=== PATIENT | female | born 1990 | race Hispanic/Latino ===

== ENCOUNTER 2016-12-26 22:46 | Day surgery (SDC) | payer OTHER ==
[2016-12-26 23:19] VITALS: BMI 27.3
[2016-12-26] MEDS ORDERED: CEFAZOLIN/Water 2 GM/20 ML SYRINGE ONE (23:39)
[2016-12-27] MEDS ORDERED: FLU VACC QS2017-18 36 mo. & older 0.5 ML SYRINGE IM ONE (09:00)
== END 2016-12-27 01:40 | disposition home or self-care (01) ==
LOC: L&D/OP 22:46
PROVIDERS: ATTEND Family Medicine
DX: O47.1 False labor at or after 37 completed weeks of gestation (principal); Z88.0 Allergy status to penicillin; Z79.899 Other long term (current) drug therapy; Z3A.38 38 weeks gestation of pregnancy

== ENCOUNTER 2016-12-31 08:01 | Inpatient (IN) | payer OTHER ==
[2016-12-31 08:41] VITALS: BMI 27.6
[2016-12-31] MEDS ORDERED: Lidocaine 1% (PF) 30 ML VIAL ONE (09:14)
--- NOTE | 2016-12-31 09:24 | PDOC.LDHP ---
Labor and Delivery H&P Chief complaint: contractions HPI: 26 yo with a previous LTCS here with complaint of contraction since 0400. States that she wants TOLAC. Denies vaginal bleeding, loss of fluid, decreased movement. Current gestational age (weeks): 39 Due date: 01/07/17 Dating criteria: last menstrual period, first trimester ultrasound Grav: 4 Para: 2 OB History Details: 1 previous spontaneous AB, 1 , 1 LTCS for breech Current complications: other (thrombocytopenia) Current medications: none Previous surgical history: low tranverse CS Social history: none - Physical Exam Vital signs reviewed and normal: yes General: NAD, breathing through contractions Heart: RRR Lungs: CTAB Abdomen: gravid Extremeties: no edema FHT: category 1 - Vaginal Exam cm dilated: 4 Effacement: 75% Station: -1 - OB Labs Blood type: A RH: positive Antibody Screen: negative HIV: negative RPR: negative HEPSAg: negative 1 hour GCT: negative Urine drug screen: negative Rubella: immune - Assessment L&D Assessment: term patient in labor - Plan Plan: admit to L&D (TOLAC. continuous monitoring. Epidural is requested. Recheck in 3 hours.) <Asad Mathew - Last Filed: 12/31/16 09:22> - OB Labs GBS: negative <Jimmy Carrasquillo - Last Filed: 12/31/16 10:58> Allergies/Adverse Reactions: Allergies Allergy/AdvReac Type Severity Reaction Status Date / Time Penicillins Allergy Hives Verified 12/31/16 08:31 Attending Addendum - Attending Addendum I personally evaluated the patient and discussed the management with Dr. Mathew. I have reviewed the H&P and it is repeated by me. I agree with the History, Examination, Assessment and Plan documented above with any addition or exceptions noted below. Admit for labor, TOLAC with CFM. <Jimmy Carrasquillo - Last Filed: 12/31/16 10:58>
[2016-12-31] MEDS ORDERED: Misoprostol 200 MCG TAB PR PRN (09:49)
[2016-12-31] MEDS ORDERED: Acetaminophen/Codeine 30-300mg Tablet PO PRN (09:49)
[2016-12-31] MEDS ORDERED: Diphenoxylate HCl/Atropine Tablet PO PRN (09:49)
[2016-12-31] MEDS ORDERED: Lidocaine 1% (PF) 30 ML VIAL SC PRN (09:49)
[2016-12-31] MEDS ORDERED: LR / Pitocin 40 units/1000 ml 1,000 ML IV PRN (09:49)
[2016-12-31] MEDS ORDERED: Carboprost 250 MCG/ML AMP IM PRN (09:49)
[2016-12-31] MEDS ORDERED: Ibuprofen 800 MG TAB PO PRN (09:49)
[2016-12-31] MEDS ORDERED: Promethazine HCl 25 MG/ML VIAL IM PRN ×3 (09:49→23:53)
[2016-12-31] MEDS ORDERED: HYDROcodone/Acetaminophen 5/325 mg Tablet PO PRN (09:49)
[2016-12-31] MEDS ORDERED: Acetaminophen 500 MG TAB PO PRN (09:49)
[2016-12-31] MEDS ORDERED: Ondansetron HCl/PF 4 MG/2 ML Vial IVP PRN ×4 (09:49→23:53)
[2016-12-31] MEDS ORDERED: Fentanyl 4 mcg/Marc 0.1% Cadd 100 ML ONE (09:56)
[2016-12-31] MEDS ORDERED: FLU VACC QS2017-18 36 mo. & older 0.5 ML SYRINGE IM ONE (10:00)
[2016-12-31 10:28] LABS: Hematocrit 36.6 % (36.0-47.0); Mean Platelet Volume 12.2 fL (7.4-10.4); Red Blood Cell (RBC) Count 4.09 mill/uL (4.20-5.40)
[2016-12-31] MEDS: Lactated Ringer's 1,000 ML IV SCH ×2 (11:40→15:06)
--- NOTE | 2016-12-31 12:53 | PDOC.LDPN ---
Labor & Delivery Progress Note - Subjective Subjective: comfortable - Objective Vital signs reviewed and normal: yes General: NAD, resting, breathing through contractions Uterine fundus: non tender SVE: 4.5/80/-1 FHT: category 2 [place] contractions every: 3-5 min - Assessment (1) Term Code(s): Z34.80 - ENCOUNTER FOR SUPRVSN OF NORMAL , UNSP TRIMESTER Current Visit: Yes Status: Acute Comment: Following epidural placement, patient had short interval of hypotension with resultant deep late decelerations x 2 and subtle late decels x 2. Patient fluid bolused and given ephedrine. FHT improved to baseline 120 without decels and variability moderate with accels. BP improved. Since FHT improved 2/2 bp intervention, will cont expectant mgmt and close monitoring. (2) Desires (vaginal after ) trial Code(s): O34.219 - MATERNAL CARE FOR UNSP TYPE SCAR FROM PREVIOUS DEL Current Visit: Yes Status: Acute (3) DIO III (cervical intraepithelial neoplasia III) Current Visit: Yes Status: Chronic (4) Gestational thrombocytopenia without hemorrhage in third trimester Code(s): O99.113 - OTH DIS OF BLD/BLD-FORM ORG/IMMUN MECHNSM COMP PREG, 3RD TRI ; D69.6 - THROMBOCYTOPENIA, UNSPECIFIED Current Visit: Yes Status: Chronic (5) Normocytic normochromic anemia Code(s): D64.9 - ANEMIA, UNSPECIFIED Current Visit: Yes Status: Chronic (6) History of low transverse section Code(s): Z98.891 - HISTORY OF UTERINE SCAR FROM PREVIOUS SURGERY Current Visit : Yes Status: Chronic -: 26 yr old at 39 wks by LMP/9.1wk US 1. sIUP in labor- 1T labs wnl, 2T anatomy wnl- anterior, fundal placenta, 3T labs reviewed, US on 12/09/16 with hadlock 63.9%. (see above for labor plan) 2. hx of section 2/2 breech delivery- 67% success predicted for , expectant mgmt without augmentation 3. Gestational thrombocytopenia s/p 14 day course of prednisone for purpose of platelet salvage 2/2 desire for epidural. LFTs wnl and hep c AB neg. 4. normocytic normochromic anemia- cont once daily iron 5. hx of DIO 3 s/p leep with ASCUS pap at start of - plan to repeat colpo PP 2/2 abnormal pap after DIO 3 6. Desires contraception- current plan is to breastfeed and start progestion only pill until getting LARC
[2016-12-31] MEDS ORDERED: Eucerin (Mineral Oil/Petrolatum,White) 30 gm Jar TOP PRN ×2 (13:13→23:53)
[2016-12-31] MEDS ORDERED: Naloxone HCl 0.4 mg/ml Vial IVP PRN ×4 (13:13→23:53)
[2016-12-31] MEDS ORDERED: ePHEDrine/0.9% NaCl/PF SYRINGE 50 mg/10 ml SLOW IVP PRN (13:13)
[2016-12-31] MEDS ORDERED: Lactated Ringer's 500 ML IV PRN (13:13)
[2016-12-31] MEDS ORDERED: diphenhydrAMINE 50 MG/ML VIAL IVP PRN ×2 (13:13→23:53)
[2016-12-31] MEDS ORDERED: Acetaminophen 325 MG TAB PO PRN (13:13)
[2016-12-31] MEDS ORDERED: Communication Order-Pharmacy FS SCH ×2 (13:15→23:45)
[2016-12-31] MEDS ORDERED: Fentanyl 4mcg/Marcaine 0.1% Cassette 100 ML EPIDURAL SCH (13:15)
--- NOTE | 2016-12-31 13:36 | PDOC.LDPN ---
Labor & Delivery Progress Note - Subjective Subjective: comfortable - Objective Vital signs reviewed and normal: yes General: NAD, resting, breathing through contractions Uterine fundus: non tender SVE: 5/80/-1 FHT: category 2 [place] contractions every: 3-5 AROM: meconium stained fluid - Assessment (1) Term Code(s): Z34.80 - ENCOUNTER FOR SUPRVSN OF NORMAL , UNSP TRIMESTER Current Visit: Yes Status: Acute Comment: AROM with light mec fluid. cat 1 strip s/p bp improvement. Cont expectant mgmt without augmentation (2) Desires (vaginal after ) trial Code(s): O34.219 - MATERNAL CARE FOR UNSP TYPE SCAR FROM PREVIOUS DEL Current Visit: Yes Status: Acute Comment: TOLAC (3) DIO III (cervical intraepithelial neoplasia III) Current Visit: Yes Status: Chronic Comment: s/p leep with subsequent ascus pap. Will plan for colposcopy PP (4) Gestational thrombocytopenia without hemorrhage in third trimester Code(s): O99.113 - OTH DIS OF BLD/BLD-FORM ORG/IMMUN MECHNSM COMP PREG, 3RD TRI ; D69.6 - THROMBOCYTOPENIA, UNSPECIFIED Current Visit: Yes Status: Chronic Comment: repeat platelets prior to epidural removal. (5) Normocytic normochromic anemia Code(s): D64.9 - ANEMIA, UNSPECIFIED Current Visit: Yes Status: Chronic (6) History of low transverse section Code(s): Z98.891 - HISTORY OF UTERINE SCAR FROM PREVIOUS SURGERY Current Visit : Yes Status: Chronic Comment: 2/2 breech presentation. > 50% chance successfus Plan: continue plan of care <Sena Kline - Last Filed: 12/31/16 13:34> Attending Addendum - Attending Addendum I personally evaluated the patient and discussed the management with Dr. Kline. I supervised the AROM procedure. I agree with the History, Examination, Assessment and Plan documented above with any addition or exceptions noted below. <Jimmy Carrasquillo - Last Filed: 12/31/16 15:20>
--- NOTE | 2016-12-31 15:08 | PDOC.LDPN ---
Labor & Delivery Progress Note - Subjective Subjective: comfortable - Objective Vital signs reviewed and normal: yes General: NAD, resting Uterine fundus: non tender Dilation: 6 cm Effacement: 90% Station: -1 FHT: category 1 [place] contractions every: 4 minutes AROM: meconium stained fluid - Assessment (1) Desires (vaginal after ) trial Code(s): O34.219 - MATERNAL CARE FOR UNSP TYPE SCAR FROM PREVIOUS DEL Current Visit: Yes Status: Acute Comment: Patient is making progress with TOLAC. Now / without agumentation. Will continue expectant management. (2) Term Code(s): Z34.80 - ENCOUNTER FOR SUPRVSN OF NORMAL , UNSP TRIMESTER Current Visit: Yes Status: Acute Comment: AROM with light mec fluid. cat 1 strip s/p bp improvement. Cont expectant mgmt without augmentation (3) History of low transverse section Code(s): Z98.891 - HISTORY OF UTERINE SCAR FROM PREVIOUS SURGERY Current Visit : Yes Status: Chronic Comment: 2/2 breech presentation. > 50% chance successfus Plan: continue plan of care
--- NOTE | 2016-12-31 17:55 | PDOC.LDPN ---
Labor & Delivery Progress Note - Subjective Subjective: comfortable, painful contractions, vaginal pressure - Objective Vital signs reviewed and normal: yes General: NAD, resting, breathing through contractions Uterine fundus: palpable contractions Dilation: 6 Effacement: 90% Station: 0 FHT: category 1 (Normal baseline, mod variabilty, accels present, early decels with CTX noted.), early decelerations [place] contractions every: 2-4 min Procedures: IUPC and scalp monitor placed. AROM: meconium stained fluid IUPC placed: yes FSE placed: yes - Assessment (1) Desires (vaginal after ) trial Code(s): O34.219 - MATERNAL CARE FOR UNSP TYPE SCAR FROM PREVIOUS DEL Current Visit: Yes Status: Acute Comment: Slow progress. IUPC placed. Discussed posibilty of for failure to progress or intolerance of labor. Will augment if indicated. epidural placed. FSE placed. (2) Term Code(s): Z34.80 - ENCOUNTER FOR SUPRVSN OF NORMAL , UNSP TRIMESTER Current Visit: Yes Status: Acute Comment: Active labor. GBS negative. (3) DIO III (cervical intraepithelial neoplasia III) Current Visit: Yes Status: Chronic Comment: s/p leep with subsequent ascus pap. Will plan for colposcopy PP (4) Gestational thrombocytopenia without hemorrhage in third trimester Code(s): O99.113 - OTH DIS OF BLD/BLD-FORM ORG/IMMUN MECHNSM COMP PREG, 3RD TRI ; D69.6 - THROMBOCYTOPENIA, UNSPECIFIED Current Visit: Yes Status: Chronic Comment: repeat platelets prior to epidural removal. (5) History of low transverse section Code(s): Z98.891 - HISTORY OF UTERINE SCAR FROM PREVIOUS SURGERY Current Visit : Yes Status: Chronic Comment: 2/2 breech presentation. > 50% chance successfus (6) Normocytic normochromic anemia Code(s): D64.9 - ANEMIA, UNSPECIFIED Current Visit: Yes Status: Chronic
--- NOTE | 2016-12-31 18:04 | PDOC.EVN ---
Event Note - Event Note Event Note: MVU 200/10min since IUPC placement. Will initiate gentle Pitocin titration.
[2016-12-31] MEDS ORDERED: LR 500 ML/Oxytocin 10 units 0 ML ONE (18:28)
[2016-12-31] MEDS ORDERED: LR 500 ML/Oxytocin 10 units 500 ML ONE (18:30)
[2016-12-31] MEDS ORDERED: LR 500 ML/Oxytocin 10 units 500 ML IV SCH (18:45)
--- NOTE | 2016-12-31 20:19 | PDOC.LDPN ---
Labor & Delivery Progress Note - Subjective Subjective: comfortable, no concerns - Objective Vital signs reviewed and normal: yes General: NAD, breathing through contractions, other (pt placed on hands/knees, possible op presentation) Dilation: 8.5 Effacement: 90% Station: 0 FHT: category 1 (baseline 130s, mod variability, accels, early decelerations, no late decels), early decelerations, variability present [place] contractions every: 2 min IUPC placed: yes FSE placed: yes Resuscitative measures: maternal position change - Assessment (1) Term Code(s): Z34.80 - ENCOUNTER FOR SUPRVSN OF NORMAL , UNSP TRIMESTER Current Visit: Yes Status: Acute Comment: Active labor. GBS negative. Plan: continue plan of care, resuscitative measures -: pt vitals stable, breathing through contractions. Continues to make progress. Cervical checks q1hr. cat 1 strip, bl 130s, mod variability, early decelerations, accels, no late decels, no variables pt placed on hands/knees, op presentation per nurse continue plan of care
[2016-12-31] MEDS ORDERED: CEFAZOLIN/Water 2 GM/20 ML SYRINGE ONE (21:52)
[2016-12-31] MEDS ORDERED: Bicitra 30 ML UDCUP ONE (21:52)
--- NOTE | 2016-12-31 22:04 | PDOC.LDPN ---
Labor & Delivery Progress Note - Subjective Subjective: comfortable, painful contractions, vaginal pressure - Objective Abnormal vital signs: pulse 105, afebrile General: NAD Uterine fundus: palpable contractions SVE: Cervical edema is noted on exam. Dilation: 8 Effacement: 90% Station: 0 FHT: category 1 (Normal baseline, moderate variability, early decels, accels present.) IUPC placed: yes FSE placed: yes - Assessment (1) Desires (vaginal after ) trial Code(s): O34.219 - MATERNAL CARE FOR UNSP TYPE SCAR FROM PREVIOUS DEL Current Visit: Yes Status: Acute Comment: Arrest of labor. Will proceed with delivery. (2) Term Code(s): Z34.80 - ENCOUNTER FOR SUPRVSN OF NORMAL , UNSP TRIMESTER Current Visit: Yes Status: Acute Comment: Active labor. GBS negative. (3) DIO III (cervical intraepithelial neoplasia III) Current Visit: Yes Status: Chronic Comment: s/p leep with subsequent ascus pap. Will plan for colposcopy PP (4) Gestational thrombocytopenia without hemorrhage in third trimester Code(s): O99.113 - OTH DIS OF BLD/BLD-FORM ORG/IMMUN MECHNSM COMP PREG, 3RD TRI ; D69.6 - THROMBOCYTOPENIA, UNSPECIFIED Current Visit: Yes Status: Chronic Comment: repeat platelets prior to epidural removal. (5) History of low transverse section Code(s): Z98.891 - HISTORY OF UTERINE SCAR FROM PREVIOUS SURGERY Current Visit : Yes Status: Chronic Comment: 2/2 breech presentation. > 50% chance successfus (6) Normocytic normochromic anemia Code(s): D64.9 - ANEMIA, UNSPECIFIED Current Visit: Yes Status: Chronic (7) Arrested active phase of labor Code(s): O62.1 - SECONDARY UTERINE INERTIA Current Visit: Yes Status: Acute Comment: Discussed proceding with delivery. Discussed R/B/I/A including giving more time for possible cervical dilation. However, the pt is tired and is inclined to proceed with . Clinda for antibx prophylaxis.
[2016-12-31] MEDS ORDERED: Clindamycin/D5W 900 mg/50 ml Premix Bag ONE (22:07)
[2016-12-31] MEDS ORDERED: Clindamycin/D5W 900 MG in Premix Bag 1 BAG IVPB SCH (22:15)
[2016-12-31] MEDS ORDERED: Ondansetron HCl/PF 4 MG/2 ML Vial ONE (22:29)
[2016-12-31] MEDS ORDERED: Morphine PF 1 MG/ML SYR ONE (22:29)
[2016-12-31] MEDS ORDERED: Oxytocin 10 UNITS/ML VIAL ONE ×2 (22:29→22:55)
[2016-12-31] MEDS ORDERED: Ketorolac Tromethamine 30 MG/ML VIAL ONE (22:55)
[2016-12-31] MEDS ORDERED: Fentanyl 100 MCG/2 ML VIAL ONE (23:01)
[2016-12-31] MEDS ORDERED: Midazolam HCl 2 mg/2 ml Vial ONE (23:01)
[2016-12-31 23:09] LABS: CO2 Tension (PaCO2) 59.7 mmHg (44.0-56.0)
[2016-12-31] MEDS ORDERED: Simethicone Chewable 80 MG TAB PO PRN (23:26)
[2016-12-31] MEDS ORDERED: Adacel (T-DAP) 0.5 ML VIAL IM ONE (23:26)
[2016-12-31] MEDS ORDERED: Lanolin Ointment 7 GM TUBE TOP PRN (23:26)
[2016-12-31] MEDS ORDERED: LR w/ Pitocin 40 units/1000 ML BAG IV SCH (23:30)
[2016-12-31] MEDS ORDERED: Naloxone HCl 0.4 mg/ml Vial IV PRN (23:53)
[2016-12-31] MEDS ORDERED: Promethazine HCl 25 MG SUPP PR PRN (23:53)
[2016-12-31] MEDS ORDERED: Ketorolac Tromethamine 30 MG/ML VIAL IVP PRN (23:53)
--- NOTE | 2017-01-01 00:17 | PDOC.OP ---
Operative Note - Operative Note Operative Note: Procedure Note Date of Procedure: 12/31/2016 Resident Surgeon: Sena Kline MD; Bonifacio Daugherty MD Attending Surgeon: Jimmy Carrasquillo MD Procedure: Repeat low transverse caesarean section Preoperative Diagnosis: 1) Term intrauterine 2) Previous 2/2 breech presentation 3) Failed TOLAC 4) Gestational thrombocytopenia 5) Normochromic normocytic anemia 6) hx of DIO 3 s/p leep with subsequent ASCUS Pap Postoperative Diagnosis: 1) Term intrauterine 2) Previous 2/2 breech presentation 3) Failed TOLAC 4) Gestational thrombocytopenia 5) Normochromic normocytic anemia 6) hx of DIO 3 s/p leep with subsequent ASCUS Pap Anesthesia: epidural Indications: The patient is a 26 year old female at 39 weeks gestation who presented for RLTCS following TOLAC and subsequent arrest of labor. Procedure in Detail: After risks, benefits, and alternatives were explained to the patient, she gave informed consent. Pre-operative antibiotics included Clindamycin 900 mg IV. The patient was taken to the operating room with epidural in place. She was placed in the supine position with a left tilt and prepped and draped in usual sterile fashion. A Pfannenstiel incision was made with a scalpel and carried down to the level of the fascia which was sharply nicked. The fascial cut was extended bilaterally with Huggins sissors. The inferior and superior edges of the cut fascial edges were elevated with Eva clamps and the underlying rectus muscles were sharply and bluntly dissected free. The recti were divided digitally and retracted manually. The peritoneum was entered bluntly and retracted manually. Bladder blade was placed. Bladder flap was created with Metzenbaum scissors. A low transverse score was made with the scalpel and the uterus was entered in the midline with the scalpel. Light meconium stained fluid was seen. The hysterotomy was extended manually. The infant was noted to be vertex and well engaged into the pelvic outlet. With gentle upward pressure, head was delivered followed by remainder of body. Mouth and nares were bulb suctioned. Cord clamped and cut and grossly normal male was handed to waiting nurse. Cord blood was obtained. Placenta was manually extracted, found to be intact with 3 vessel cord and discarded. The uterus was externalized and the endometrium was curetted with a dry lap. The bladder blade was replaced and the uterus was closed with a running locking 0-monocryl. Following this hemostasis was noted. The abdomen was suctioned free of clots. The uterus was internalized and the hysterotomy was noted to have oozing and a running non-locking 0-monocryl imbricating suture was placed on hysterotomy. The peritoneum was closed with a running non locking 3-0 chromic. A small anterior midline fascial defect was repaired with a 0-vicryl running suture. The fascia was then closed with a running non-locking 0-Vicryl suture. The subcutaneous tissue was irrigated and there were no bleeders. The skin was approximated with brigette and a pressure dressing was placed. All counts were correct. The patient tolerated the procedure well and was taken to the recovery room in stable condition. Estimated Blood Loss: 1000 ml Complications: None Specimens: Cord blood sent to lab for blood type Findings: Grossly normal male with apgars of 3, 7 and 9. Grossly normal placenta with 3 vessel cord discarded. Drains: Curry to gravity draining clear urine <Sena Kline - Last Filed: 01/01/17 00:18> - Operative Note Operative Note: Pre ad Post Op diagnosis also includes Arrest of Labor. Following closure of hysterotomy with imbrication, hemostatis confirmed. Anterior Rectus Fascia defect was 3 cm at the midline. Repaired as noted. Hemostatis confirmed at each layer of tissue closure. <Jimmy Carrasquillo - Last Filed: 01/01/17 10:31>
[2017-01-01 00:51] LABS: Hematocrit 30.7 % (36.0-47.0); Mean Platelet Volume 12.4 fL (7.4-10.4); Red Blood Cell (RBC) Count 3.44 mill/uL (4.20-5.40); White Blood Cell (WBC) Count 13.9 thou/uL (4.8-10.8)
[2017-01-01] MEDS: Lactated Ringer's 1,000 ML IV SCH ×3 (02:46→21:07)
[2017-01-01 05:44] LABS: Hematocrit 31.1 % (36.0-47.0); Mean Platelet Volume 12.2 fL (7.4-10.4); Red Blood Cell (RBC) Count 3.43 mill/uL (4.20-5.40); White Blood Cell (WBC) Count 13.5 thou/uL (4.8-10.8)
[2017-01-01] MEDS ORDERED: Ibuprofen 800 MG TAB PO SCH ×2 (06:00→19:30)
--- NOTE | 2017-01-01 08:13 | PDOC.PP ---
Addendum entered and electronically signed by Asad Mathew DO 01/01/17 10:29: Pt is not requesting dc today. Will likely be ready at 36-48 hours post op. Original Note: Post Progress Note Post Day #: 1 Subjective: Pt is feeling well this morning. Pain is controlled, denies fever/chills, chest pain, and she has minimal vaginal bleeding. She is going to breast feed baby and has no specific complaints. PO intake tolerated: yes Flatus: yes Ambulation: no Vital Signs (12 hours) Temp Pulse Resp BP Pulse Ox 01/01/17 07:50 98.1 F 78 20 99/52 L 01/01/17 04:50 98.4 F 75 16 01/01/17 03:40 98.4 F 75 16 95/53 L 96 01/01/17 02:50 99.1 F 82 16 93/53 L 96 01/01/17 01:50 98.6 F 94 18 110/57 L Weight Weight 66.224 kg - Physical Examination General: NAD Cardiovascular: no m/r/g, RRR Respiratory: clear to auscultation bilaterally, non-labored breathing Abdominal: + bowel sounds, lochia, no distention, appropriately TTP Fundus firm & at: U -2 Extremities: negative homans (B) Skin: CS incision dry & intact, no rash Neurological: no gross focal deficits Psychiatric: A&Ox3, normal affect Result Diagrams: 01/01/17 04:48 Additional Labs: Post Labs Blood Type A POSITIVE 12/31/16 09:20 Hep Bs Antigen Non-Reactive S/CO (NonReactive) 12/31/16 09:20 (1) delivery delivered Code(s): O82 - ENCOUNTER FOR DELIVERY WITHOUT INDICATION Status: Acute Comment: 26 yo >3 s/p LTCS for arrest of labor during TOLAC. Pt is doing well post op. Will continue PRN norco and motrin for pain control. Monitor her CBC dt associated thrombocytopenia, currently she is soaking through less than 1 pad/hr. Continue normal care. Pt is requesting to go home today.This appears to be reasonable pending how well baby does today. <Asad Mathew - Last Filed: 01/01/17 10:25> Vital Signs (12 hours) Temp Pulse Resp BP Pulse Ox 01/01/17 09:00 98.1 F 78 20 01/01/17 07:50 98.1 F 78 20 99/52 L 01/01/17 04:50 98.4 F 75 16 01/01/17 03:40 98.4 F 75 16 95/53 L 96 01/01/17 02:50 99.1 F 82 16 93/53 L 96 01/01/17 01:50 98.6 F 94 18 110/57 L Weight Weight 66.224 kg Result Diagrams: 01/01/17 04:48 Additional Labs: Post Labs Blood Type A POSITIVE 12/31/16 09:20 Hep Bs Antigen Non-Reactive S/CO (NonReactive) 12/31/16 09:20 (1) Desires (vaginal after ) trial Code(s): O34.219 - MATERNAL CARE FOR UNSP TYPE SCAR FROM PREVIOUS DEL Status: Acute Comment: Arrest of labor. Will proceed with delivery. (2) Term Code(s): Z34.80 - ENCOUNTER FOR SUPRVSN OF NORMAL , UNSP TRIMESTER Status: Acute Comment: Active labor. GBS negative. (3) DIO III (cervical intraepithelial neoplasia III) Status: Chronic Comment: s/p leep with subsequent ascus pap. Will plan for colposcopy PP (4) Gestational thrombocytopenia without hemorrhage in third trimester Code(s): O99.113 - OTH DIS OF BLD/BLD-FORM ORG/IMMUN MECHNSM COMP PREG, 3RD TRI ; D69.6 - THROMBOCYTOPENIA, UNSPECIFIED Status: Chronic Comment: repeat platelets prior to epidural removal. (5) History of low transverse section Code(s): Z98.891 - HISTORY OF UTERINE SCAR FROM PREVIOUS SURGERY Status: Chronic Comment: 2/2 breech presentation. > 50% chance successfus (6) Normocytic normochromic anemia Code(s): D64.9 - ANEMIA, UNSPECIFIED Status: Chronic (7) Arrested active phase of labor Code(s): O62.1 - SECONDARY UTERINE INERTIA Status: Acute Comment: Discussed proceding with delivery. Discussed R/B/I/A including giving more time for possible cervical dilation. However, the pt is tired and is inclined to proceed with . Clinda for antibx prophylaxis. <Jimmy Carrasquillo - Last Filed: 01/01/17 10:34> Attending Addendum - Attending Addendum I personally evaluated the patient and discussed the management with Dr. Mathew I agree with the History, Examination, Assessment and Plan documented above with any addition or exceptions noted below. Patient is doing well. <Jimmy Carrasquillo - Last Filed: 01/01/17 10:34>
[2017-01-01] MEDS: Ferrous Sulfate 325 MG TAB PO SCH (09:12)
[2017-01-01] MEDS: Docusate 100 MG CAP PO SCH ×2 (09:13→20:16)
[2017-01-01] MEDS: Prenatal Vitamin 1 TAB PO SCH (09:13)
[2017-01-01] MEDS: HYDROcodone/Acetaminophen 5/325 mg Tablet PO PRN ×2 (14:28→20:17)
[2017-01-02] MEDS: Ibuprofen 800 MG TAB PO SCH ×2 (06:18→14:13)
[2017-01-02] MEDS: HYDROcodone/Acetaminophen 5/325 mg Tablet PO PRN (06:19)
[2017-01-02] MEDS: Lactated Ringer's 1,000 ML IV SCH (06:21)
--- NOTE | 2017-01-02 08:00 | PDOC.PP ---
Post Progress Note Post Day #: 2 Subjective: Pt is doing well today. Pain is controlled and she is spacing out her [place]. She is ambulating frequently. Bleeding is less than 1 pad/hr, no clots. She is voiding well and has flatus. PO intake tolerated: yes Flatus: yes Ambulation: yes Vital Signs (12 hours) Temp Pulse Resp BP 01/01/17 23:55 98.4 F 85 18 113/54 L 01/01/17 20:00 98.0 F 94 18 115/56 L Weight Weight 66.224 kg - Physical Examination General: NAD Cardiovascular: no m/r/g, RRR Respiratory: clear to auscultation bilaterally Abdominal: + bowel sounds, lochia (Bloody w/o clots), no distention, appropriately TTP Fundus firm & at: u -3 Extremities: negative homans (B) Skin: CS incision dry & intact, no rash Neurological: no gross focal deficits Psychiatric: A&Ox3, normal affect Result Diagrams: 01/01/17 04:48 Additional Labs: Post Labs Blood Type A POSITIVE 12/31/16 09:20 Hep Bs Antigen Non-Reactive S/CO (NonReactive) 12/31/16 09:20 (1) delivery delivered Code(s): O82 - ENCOUNTER FOR DELIVERY WITHOUT INDICATION Status: Acute Comment: 26 yo >3 s/p LTCS for arrest of labor during TOLAC. Pt is doing well post op. Will continue PRN norco and motrin for pain control. Platelets are stable. Currently she is soaking through less than 1 pad/hr. Continue normal care. Pt is likely ready for dc today with baby pending his 36hr bili <Asad Mathew - Last Filed: 01/02/17 07:53> Vital Signs (12 hours) Temp Pulse Resp BP 01/02/17 08:15 98.1 F 74 20 93/52 L 01/01/17 23:55 98.4 F 85 18 113/54 L Weight Weight 66.224 kg Result Diagrams: 01/01/17 04:48 Additional Labs: Post Labs Blood Type A POSITIVE 12/31/16 09:20 Hep Bs Antigen Non-Reactive S/CO (NonReactive) 12/31/16 09:20 (1) Term Code(s): Z34.80 - ENCOUNTER FOR SUPRVSN OF NORMAL , UNSP TRIMESTER Status: Acute (2) DIO III (cervical intraepithelial neoplasia III) Status: Chronic Comment: s/p leep with subsequent ascus pap. Will plan for colposcopy PP (3) Gestational thrombocytopenia without hemorrhage in third trimester Code(s): O99.113 - OTH DIS OF BLD/BLD-FORM ORG/IMMUN MECHNSM COMP PREG, 3RD TRI ; D69.6 - THROMBOCYTOPENIA, UNSPECIFIED Status: Chronic (4) History of low transverse section Code(s): Z98.891 - HISTORY OF UTERINE SCAR FROM PREVIOUS SURGERY Status: Chronic Comment: 2/2 breech presentation. > 50% chance successfus <Jimmy Carrasquillo - Last Filed: 01/02/17 09:33> Attending Addendum - Attending Addendum I personally evaluated the patient and discussed the management with Dr. Mathew. I agree with the History, Examination, Assessment and Plan documented above with any addition or exceptions noted below. stable for discharge. <Jimmy Carrasquillo - Last Filed: 01/02/17 09:33>
[2017-01-02] MEDS: Prenatal Vitamin 1 TAB PO SCH (09:31)
[2017-01-02] MEDS: Docusate 100 MG CAP PO SCH (09:31)
[2017-01-02] MEDS: Ferrous Sulfate 325 MG TAB PO SCH (09:31)
[2017-01-02] MEDS ORDERED: Bisacodyl 10 MG SUPP PR PRN (10:23)
[2017-01-02 11:32] VITALS: BP 106/51; TEMP 98.2
== END 2017-01-02 15:20 | disposition home or self-care (01) | DRG 766 ==
LOC: L&D/OP 08:01 → L&D 09:29 → 3SW 01-01 01:48
PROVIDERS: ADMIT Family Medicine; ATTEND Family Medicine
PROC: 10D00Z1 Extraction of Products of Conception, Low, Open Approach (ICD-10-PCS; principal; 2016-12-31)
PROC: 4A0HXCZ Measurement of Products of Conception, Cardiac Rate, External Approach (ICD-10-PCS; 2016-12-31)
PROC: 10H07YZ Insertion of Other Device into Products of Conception, Via Natural or Artificial Opening (ICD-10-PCS; 2016-12-31)
DX: O99.12 Other diseases of the blood and blood-forming organs and certain disorders involving the immune mechanism complicating childbirth (principal); O34.43 Maternal care for other abnormalities of cervix, third trimester; O62.1 Secondary uterine inertia; O72.1 Other immediate postpartum hemorrhage; O61.0 Failed medical induction of labor; O77.0 Labor and delivery complicated by meconium in amniotic fluid; O34.211 Maternal care for low transverse scar from previous cesarean delivery; O76 Abnormality in fetal heart rate and rhythm complicating labor and delivery; O99.02 Anemia complicating childbirth; D69.59 Other secondary thrombocytopenia; D06.9 Carcinoma in situ of cervix, unspecified; D64.9 Anemia, unspecified; Z3A.39 39 weeks gestation of pregnancy; Z37.0 Single live birth
CPT/HCPCS: 36415; 82805; 85027; 86780; 86850; 86900; 86901; 87340; J0595; J1885; J2001; J2250; J2274; J2405; J2590; J3010; J3490; J7120

== ENCOUNTER 2017-08-13 08:00 | Emergency (ER) | payer OTHER | END 2017-08-13 08:37 | disposition home or self-care (01) | LOC: ERS 08:00 | DX: L50.0 Allergic urticaria (principal); T43.595A Adverse effect of other antipsychotics and neuroleptics, initial encounter; Z79.899 Other long term (current) drug therapy | CPT/HCPCS: 99283 ==

== ENCOUNTER 2017-11-10 15:58 | Day surgery (SDC) | payer BC, OTHER ==
[2017-11-10] MEDS ORDERED: Iron Sucrose Complex 500 MG in Sodium Chloride 0.9% 250 ML 250 ML IVPB SCH ×2 (17:21→17:30)
[2017-11-10] MEDS ORDERED: Acetaminophen 500 MG TAB PO SCH (17:30)
[2017-11-10] MEDS ORDERED: Sodium Chloride 0.9% 1,000 ML IV SCH (17:30)
[2017-11-10 17:52] VITALS: BMI 28.3
--- NOTE | 2017-11-10 17:54 | PDOC.FPROB ---
FMR OB H&P: HPI - History of Present Illness Chief Complaint: Iron infusion Indentification: 27 yo @ 34.0 by 8.0 week sono History of Present Illness: Shannon Landon is a 27 year old female female @ 34.0 weeks by 8.0 week US with a history of gestational anemia who presents to L&D for iron infusion. Most recent H/H was 9.1/26.9; MCV: 78.7 (10/29/17). She is not currently taking PO iron supplementation. She reports shortness of breath with and without exertion. She denies chest pain, palpitations, nausea, vomiting, abdominal pain , vaginal bleeding, and decrease in movement. Primary Care Physician: Dr. Rafaela Nguyen FMR OB H&P: Current - Care : 5 Para: 3 Gestational age: 34.0 Due date: 12/22/2017 Dating Criteria: LMP Course/Complications: Anemia - OB Labs Blood type: A RH: positive Antibody Screen: negative HIV: negative RPR: negative HepBsAg: negative Rubella: immune Gonorrhea: negative Chlamydia: negative Pap Smear: ASC-H (04/2017), high risk HPV positive 1 hour gtt: 109 GBS: unknown - Anatomy Survey Anatomy survey: No abnormalities noted. Anterior, fundal placenta. Female fetus. - Additional Ultrasound Additional: Growth scan performed in clinic due to S< D discrepancy size consistent with dates with most recent growth scan today in clinic. Borderline low KLAUS FMR OB H&P: History - Past Medical History PMH: None - OB History OB History: Pt has had 2 c-sections (Breech presentation 2010, RLTCS 2017 - INTERNATIONAL STUDENT COUNSELOR History INTERNATIONAL STUDENT COUNSELOR History: Hx of ASC-H (04/2017). Pt has had prior abnormal colpo s/p LEEP with DIO 3 and positive margins in 2016. She had a repeat colpo in July 2017 which showed no obvious signs of dysplasia on colpo, no biopsies were done. Repeat colpo 6 weeks was recommended. - Surgical History Sx History: C-sections x 2. Retinal detachment repair in 2017 - Social History Social History: Denies alcohol, tobacco, and drug use. - Family History Family History: Grandmother has history of breast cancer. Sister has history of ovarian cancer diagnosed around 29-30 years of age. FMR OB H&P: Medications - Current Home Medications: Medication Instructions Recorded Confirmed Type 21/Iron Fu/Folic Acid 1 tablet PO DAILY 12/26/16 12/31/16 History [ Complete Caplet] Ferrous Sulfate 1 mg PO DAILY 12/31/16 12/31/16 History Acetaminophen [Tylenol Regular 650 mg PO Q4H PRN #15 tab 01/02/17 Rx Strength] HYDROcodone Bit/APAP 5/325 [[place]] 1 tab PO Q4H PRN #15 tab 01/02/17 Rx Ibuprofen [Motrin] 800 mg PO Q8HR #15 tab 01/02/17 Rx Allergies/Adverse Reactions: Allergies Allergy/AdvReac Type Severity Reaction Status Date / Time Penicillins Allergy Hives Verified 12/31/16 08:31 FMR OB H&P: ROS - Review of Systems General: denies: fever/chills ENT: denies: nasal congestion Cardiovascular: denies: chest pain, palpitation Respiratory: reports: shortness of breath Gastrointestinal: denies: abdominal pain Genitourinary (Female): denies: dysuria Psychological: denies: depression FMR OB H&P: Vital Signs - Heart Tones Baseline: 140 Variability: moderate Acceleration: present Deceleration: absent Category: category 1 [place] contractions every: Absent FMR OB H&P: A/P - Problem List (1) Anemia affecting fifth Current Visit: Yes Status: Acute Code(s): O99.019 - ANEMIA COMPLICATING , UNSPECIFIED TRIMESTER; O09.40 - SUPERVISION OF W GRAND MULTIPARITY, UNSP TRIMESTER Assessment and Plan: Will admit pt to L&D for iron infusion. Iron infusion protocol initiated. Will discharge pt with follow-up with PCP if no issues after infusion. Discussion: Date/Time: 11/10/171751 This H&P was discussed with Dr. Swanson who agrees with the above documentation and plan. Attending Addendum - Attending Addendum Date/Time: 11/10/172045 I personally evaluated the patient and discussed the management with Dr. Robles I agree with the History, Examination, Assessment and Plan documented above with any addition or exceptions noted below- 27 yo @ 34 weeks with anemia of here for iron infusion. Denies any complaints. Denies any dizziness/SOB. (+) FM. Afebrile VSS. Agree with exam as documented by resident. A/P: 1) Anemia of - iron infusion in progress; no reaction to date. Plan to d/c home after completion of infusion.
[2017-11-10] MEDS ORDERED: diphenhydrAMINE 25 MG CAP PO SCH (23:15)
== END 2017-11-11 00:15 | disposition home or self-care (01) ==
LOC: L&D/OP 15:58
PROVIDERS: ATTEND Family Medicine
DX: O99.013 Anemia complicating pregnancy, third trimester (principal); D64.9 Anemia, unspecified; Z3A.34 34 weeks gestation of pregnancy; Z88.0 Allergy status to penicillin
CPT/HCPCS: 96361; 96365; 96366; 99283; J1756; J7050

== ENCOUNTER 2017-11-30 18:18 | Day surgery (SDC) | payer BC, OTHER ==
[2017-11-30 19:24] VITALS: BP 107/53; TEMP 98.6
--- NOTE | 2017-11-30 19:58 | PDOC.FPROB ---
FMR OB H&P: HPI - History of Present Illness Chief Complaint: prolonged decells Indentification: 27yo at 36.6weeks EGA History of Present Illness: 27yo at 36.6weeks EGA by LMP and 8w US with hx of anemia of and IUGR (seen by MFM in [place] with recs for NST 2/week) presenting from [facility] clinic for eval of variable decels down to the 60's. Pt has no complaints at this time. No vaginal bleeding/discharge/LOF, mild crampy contractions q2hr, reports some decrease in mvmt. but reports she still feels strong mvmt every 2 hours FMR OB H&P: Current - Care : 5 Para: 3013 Gestational age: 36.6 Due date: 12/22/2017 Dating Criteria: LMP and 8 week US - OB Labs Blood type: A RH: positive Antibody Screen: negative HIV: positive RPR: positive HepBsAg: positive Rubella: immune GBS: unknown FMR OB H&P: History - Past Medical History PMH: retinal detach s/p partial repair, second procedure to be done after delivery, L eye blind - OB History OB History: 2 previous C sections (first one due to breech presentation) - INTERNATIONAL SALES REPRESENTATIVE History INTERNATIONAL SALES REPRESENTATIVE History: Hx of ASC-H (04/2017). Pt has had prior abnormal colpo s/p LEEP with DIO 3 and positive margins in 2016. She had a repeat colpo in July 2017 which showed no obvious signs of dysplasia on colpo, no biopsies were done. - Surgical History Sx History: C section and RLTCS, retinal detachment surgery 2016 - Social History Social History: Denies Tobacco/EtOH/Drugs - Family History Family History: Grandmother- breast cancer Sister- ovarian cancer dx at age ~30 FMR OB H&P: Medications - Current Home Medications: Medication Instructions Recorded Confirmed Type 21/Iron Fu/Folic Acid 1 tablet PO DAILY 12/26/16 11/30/17 History [ Complete Caplet] Ferrous Sulfate 1 mg PO DAILY 12/31/16 11/30/17 History Acetaminophen [Tylenol Regular 650 mg PO Q4H PRN #15 tab 01/02/17 11/30/17 Rx Strength] Allergies/Adverse Reactions: Allergies Allergy/AdvReac Type Severity Reaction Status Date / Time Penicillins Allergy Hives Verified 11/30/17 19:26 FMR OB H&P: ROS - Review of Systems General: denies: fever/chills, fatigue Eyes: denies: eye pain, vision changes ENT: denies: nasal congestion, rhinorrhea Cardiovascular: denies: chest pain, palpitation Respiratory: denies: cough, congestion Gastrointestinal: denies: abdominal pain, indigestion Genitourinary (Female): reports: contractions (mild q2hr). denies: dysuria, hematuria, vaginal pain, vaginal bleeding Musculoskeletal: reports: pain ( associated mild back pain). denies: stiffness Neurologic: denies: syncope, seizures Integumentary: denies: rash, lesions Psychological: denies: depression, anxiety FMR OB H&P: Vital Signs - Maternal Vital signs: Vital Signs - First Documented Temp Pulse Resp BP Pulse Ox 98.6 F 90 20 107/53 L 97 11/30/17 19:19 11/30/17 19:19 11/30/17 19:19 11/30/17 19:19 11/30/17 19:19 - Heart Tones Baseline: 135 Variability: moderate Acceleration: present Deceleration: absent FMR OB H&P: Physical Exam - Physical Exam General: NAD, awake, alert and oriented HEENT: normocephalic and atraumatic, EOMI, MMM, no scleral icterus, grossly normal hearing Neck: supple, trachea midline Chest: non-tender to palpation Heart: RRR, normal S1/S2, no murmurs/rubs/gallops General: CTAB, no respiratory distress Abdomen: soft, gravid, bowel sound present Musculoskeletal: pulses present Neurological: no tremor Skin: no rash, good tugor, capillary refill <2 seconds Lymphatic: no purpura, no petechia Psychiatric: intact recent and remote memory, good judgement and insight FMR OB H&P: A/P - Problem List (1) Current Visit: Yes Status: Acute (2) Anemia affecting fifth Current Visit: No Status: Acute Code(s): O99.019 - ANEMIA COMPLICATING , UNSPECIFIED TRIMESTER; O09.40 - SUPERVISION OF W GRAND MULTIPARITY, UNSP TRIMESTER Disposition: 27yo at 36.6weeks EGA by LMP and 8w US with hx of anemia of and IUGR (seen by MICHOACANO in [place] with recs for NST 2/week) presenting from [facility] clinic for eval of variable decels. , third trimester with observed variable decels in clinic A- Hx of IUGR, all other subjective and objective findings reassuring since pt has been on floor, FHTs are very reassuring with several accels. P- BPP, will likely DC if reassuring -monitor strip, vitals, FHT Anemia of A- pt asymptomatic at this time. P- will get full admission labs if BPP non reassuring. GBS unknown -GBS test done today in clinic, results pending Attending Addendum - Attending Addendum Date/Time: 11/30/172111 I personally evaluated the patient and discussed the management with Dr. Mitchell. I agree with the History, Examination, Assessment and Plan documented above with any addition or exceptions noted below. Awaiting BPP.
--- NOTE | 2017-11-30 23:36 | ULT ---
BIOPHYSICAL PROFILE: 11/30/2017 HISTORY: Variable decelerations. FINDINGS: There is a single intrauterine gestation, in cephalic presentation. Cardiac Doppler does demonstrate heart tones with a heart rate of 131 beats per minute. The placenta is located anterior ly without evidence of placenta previa. A score of 2 was obtained, each for movement, tone, breathing movements, and amniot ic fluid volume. An amniotic fluid index of 7.3 cm was calculated, which is diminished. IMPRESSION: 1. Decreased amniotic fluid index of 7.3 cm. 2. Total biophysical profile score is 8/8. 3. Single intrauterine gestation, in cephalic presentation, with heart tones documented. 4. Cervical length measures 4.6 cm, as measured on transabdominal imaging. POS: SWETA
== END 2017-11-30 23:14 | disposition home or self-care (01) ==
LOC: L&D/OP 18:18
PROVIDERS: ATTEND Family Medicine
DX: Z01.89 Encounter for other specified special examinations (principal); O99.013 Anemia complicating pregnancy, third trimester; D64.9 Anemia, unspecified; Z3A.36 36 weeks gestation of pregnancy; Z79.899 Other long term (current) drug therapy; Z88.0 Allergy status to penicillin
CPT/HCPCS: 76819; 99282

== ENCOUNTER 2017-12-03 10:36 | Inpatient (IN) | payer BC, OTHER ==
[2017-12-03] MEDS ORDERED: Promethazine HCl 25 MG/ML VIAL IM PRN ×2 (10:45→21:49)
[2017-12-03] MEDS ORDERED: Acetaminophen 500 MG TAB PO PRN (10:45)
[2017-12-03] MEDS ORDERED: Ondansetron PF 4 MG/2 ML Vial IVP PRN ×2 (10:45→21:49)
[2017-12-03] MEDS ORDERED: PHENYLEPHRINE-NS 100 MCG/ML 10 ML SYRINGE ONE ×2 (11:25→16:15)
[2017-12-03] MEDS ORDERED: Ondansetron PF 4 MG/2 ML Vial ONE ×2 (11:25→16:15)
[2017-12-03] MEDS ORDERED: Ketorolac Tromethamine 30 MG/ML VIAL ONE ×2 (11:25→16:15)
[2017-12-03] MEDS ORDERED: PROPOFOL 200 MG/20 ML VIAL ONE (11:25)
[2017-12-03] MEDS ORDERED: Bicitra 30 ML UDCUP PO SCH (14:00)
[2017-12-03] MEDS: Lactated Ringer's 1,000 ML IV SCH ×2 (14:14→19:28)
[2017-12-03 14:36] LABS: Hemoglobin 11.1 g/dL (12.0-16.0); Mean Corpuscular HGB CONC 31.7 g/dL (32.0-36.0); Mean Corpuscular Hemoglobin 27.2 pg (27.0-31.0); Mean Corpuscular Volume 85.7 fL (78.0-98.0); Mean Platelet Volume 11.5 fL (7.4-10.4); Platelet Count 162 thou/uL (130-400); RBC Distribution Width 18.8 % (11.5-14.5); White Blood Cell (WBC) Count 6.4 thou/uL (4.8-10.8)
[2017-12-03 14:49] VITALS: BMI 28.3
[2017-12-03 15:15] LABS: Syphilis Antibody Nonreactive (Nonreactive); Syphilis Antibody Index 0.06 S/CO (<1.00 Non-Reactive)
[2017-12-03] MEDS ORDERED: CEFAZOLIN/Water 2 GM/20 ML SYRINGE SLOW IVP SCH (15:15)
--- NOTE | 2017-12-03 15:17 | PDOC.FPROB ---
FMR OB H&P: HPI - History of Present Illness Chief Complaint: oligohydramnios History of Present Illness: Shannon Landon is a at 37.2wks by LMP c/w 8.0 wk US who presents from clinic for oligohydramnios. She denies VB, LOF, endorses good movement, and irregular contractions. EDC:12/22/2017 FMR OB H&P: Current - Care : 5 Para: 3013 Gestational age: 37.2 Due date: 12/22/2017 Dating Criteria: by LMP c/w 8.0 wk US Course/Complications: Placental Insufficiency found by MFM on 3T US (S/D ratio 4.19, >99%) - OB Labs Blood type: A RH: positive Antibody Screen: negative HIV: negative RPR: negative HepBsAg: negative Rubella: immune Gonorrhea: negative Chlamydia: negative Pap Smear: CIN3 s/p LEEP 1 hour gtt: wnl GBS: negative (at 12 hours) - Anatomy Survey Anatomy survey: anterior placenta no abnormalities seen - Additional Ultrasound Additional: 3T US: anterior placenta, cephalic Placental insufficiency (S/D ratio 4.19 >99%) [place] 19% (AC 5%) FMR OB H&P: History - Past Medical History PMH: Migraines Left retinal detachment - OB History OB History: OB hx: 1.)-no epidural, anemia girl, 40 2.)CS-breech, 37 weeks in labor, girl 3.)failed tolac failure to dilate, @ 39 weeks, boy - FIELD ASSISTANT History FIELD ASSISTANT History: DIO 3 s/p LEEP 2017 - Surgical History Sx History: 2 prior cs - Social History Social History: denies smoking, alcohol, drug use - Family History Family History: sister had ovarian cancer FMR OB H&P: Medications - Current Home Medications: Medication Instructions Recorded Confirmed Type 21/Iron Fu/Folic Acid 1 tablet PO DAILY 12/26/16 12/03/17 History [ Complete Caplet] Ferrous Sulfate 1 mg PO DAILY 12/31/16 12/03/17 History Allergies/Adverse Reactions: Allergies Allergy/AdvReac Type Severity Reaction Status Date / Time Penicillins Allergy Hives Verified 12/03/17 14:39 FMR OB H&P: ROS - Review of Systems General: denies: fever/chills, weight/appetite/sleep changes ENT: denies: nasal congestion, rhinorrhea Cardiovascular: denies: chest pain, palpitation, edema Gastrointestinal: reports: cramping. denies: abdominal pain, nausea, vomiting Genitourinary (Female): reports: contractions (intermittant). denies: dysuria, hematuria, vaginal pain, vaginal bleeding, vaginal mass/sore, vaginal pressure Musculoskeletal: denies: pain, stiffness Neurologic: denies: numbness, syncope Integumentary: denies: itching, rash Breast: denies: lumps, bumps FMR OB H&P: Vital Signs - Heart Tones Baseline: 130 Variability: moderate Acceleration: present Deceleration: variable Category: category 2 [place] contractions every: intermittant FMR OB H&P: Physical Exam - Physical Exam General: NAD, awake, alert and oriented HEENT: normocephalic and atraumatic, PERRLA Heart: RRR, normal S1/S2 General: CTAB, no respiratory distress Abdomen: soft, gravid, non-tender Skin: no rash, good tugor Lymphatic: no unusual bruising or bleeding, no purpura Psychiatric: normal mood and affect - Pelvic Exam Presentation: cephalic Estimated Weight: other (19% by [place]) FMR OB H&P: Results - Labs Lab results: Laboratory Results - last 24 hr 12/03/17 12/03/17 14:22 14:22 WBC 6.4 RBC 4.10 L Hgb 11.1 L Hct 35.1 L MCV 85.7 MCH 27.2 MCHC 31.7 L RDW 18.8 H Plt Count 162 MPV 11.5 H Blood Type A POSITIVE Antibody Screen NEGATIVE FMR OB H&P: A/P - Problem List (1) Grand multiparity Current Visit: Yes Status: Acute Code(s): Z64.1 - PROBLEMS RELATED TO MULTIPARITY (2) Oligohydramnios Current Visit: Yes Status: Acute Code(s): O41.00X0 - OLIGOHYDRAMNIOS, UNSP TRIMESTER, NOT APPLICABLE OR UNSP (3) Placental insufficiency Current Visit: Yes Status: Acute Code(s): O36.5190 - MATERN CARE FOR KNOWN OR SUSP PLACNTL INSUFF, UNSP TRI, UNSP (4) Term Current Visit: No Status: Acute Code(s): Z34.80 - ENCOUNTER FOR SUPRVSN OF NORMAL , UNSP TRIMESTER (5) DIO III (cervical intraepithelial neoplasia III) Current Visit: No Status: Chronic Comment: s/p leep with subsequent ascus pap. Will plan for colposcopy PP (6) Gestational thrombocytopenia without hemorrhage in third trimester Current Visit: No Status: Chronic Code(s): O99.113 - OTH DIS OF BLD/BLD- FORM ORG/IMMUN MECHNSM COMP PREG, 3RD TRI; D69.6 - THROMBOCYTOPENIA, UNSPECIFIED (7) History of low transverse section Current Visit: No Status: Chronic Code(s): Z98.891 - HISTORY OF UTERINE SCAR FROM PREVIOUS SURGERY Comment: 2/2 breech presentation. > 50% chance successfus (8) Normocytic normochromic anemia Current Visit: No Status: Chronic Code(s): D64.9 - ANEMIA, UNSPECIFIED Disposition: Shannon Landon is a at 37.2wks by LMP c/w 8.0 wk US who presents from clinic for oligohydramnios admitted for medically indicated delivery via section. #sIUP #Oligohydramnios #Anemia of Pregnany #Placental Insufficiency #Grand multiparity #CIN3 s/p LEEP # Prior CS x2 Plan: Admit to L&D. Obtain consent. Consult anesthesia. Hemagram, syphilis, HIV. Ancef prior to section. Discussion: Date/Time: 12/03/17 1445 This H&P was discussed with [] and [] who agree with the above documentation and plan. Attending Addendum - Attending Addendum Date/Time: 12/04/17 7390 I personally evaluated the patient and discussed the management with Dr. Nguyen on 12/03/2017 I agree with the History, Examination, Assessment and Plan documented above with any addition or exceptions noted below- 27 yo @ 37.2 weeks sent from clinic due to finding of oligohydramnios (KLAUS=4) and elevated S/D ratio. BPP8/8. (+) FM. Denies any ctx, LOF, VB. Patient with history of 2 prior C- Sections. Afebrile VSS. Exam repeated by me and agree with resident's findings. A/P: IUP@37.2 weeks with oligohydramnios, placental insufficiency, and 2 prior C /Section- will proceed with repeat . Patient additionally approved for risk reducing salpingectomy due to family history of ovarian cancer and desires to proceed with this.
[2017-12-03 15:20] LABS: HBSAg Index 0.17 S/CO (0-0.99); Hep B Surf Ag Non-Reactive S/CO (NonReactive)
[2017-12-03] MEDS ORDERED: Morphine PF 1 MG/ML SYR ONE (16:14)
[2017-12-03] MEDS ORDERED: Lidocaine 1% PF 5 ML VIAL ONE (16:15)
[2017-12-03] MEDS ORDERED: Bupivacaine 0.75% W/DEXTROSE 8.25% 2 ML AMP ONE (16:15)
[2017-12-03] MEDS ORDERED: Oxytocin 10 UNITS/ML VIAL ONE ×2 (16:15→18:00)
[2017-12-03] MEDS ORDERED: ePHEDrine/0.9% NaCl/PF SYRINGE 50 mg/10 ml ONE (16:15)
[2017-12-03] MEDS ORDERED: Fentanyl 100 MCG/2 ML VIAL ONE (17:18)
[2017-12-03] MEDS ORDERED: PROPOFOL 20 ML ONE (17:36)
--- NOTE | 2017-12-03 18:37 | PDOC.OPDEL ---
OB Operative/Delivery Note Delivery Dr/Surgeon: Karl Assist: Juana; Attending: Dr. Swanson - Additional Findings/Plan Compilations/Other Findings: Delivering Physician: Assist: Dr. Arias Attending: Dr. Swanson Procedure: Repeat low transverse caesarean section Preoperative Diagnosis: 1)Early Term intrauterine 2)Previous X2 3)Oligohydramnios 4)Grand multiparity Postoperative Diagnosis: 1)Early Term intrauterine , s/p repeat section, medically indicated 2)Previous X2 3)Oligohydramnios 4)Grand multiparity The patient is a 27 year old G5,P3013 female at 37.2 weeks gestation who presents for a repeat secondary to oligohydramnios, placental insufficiency, and two prior sections. Procedure in Detail: After risks, benefits, and alternatives were explained to the patient, she gave informed consent. Pre-operative antibiotics included Cefazolin 2 gram IV. The patient was taken to the operating room and spinal anesthesia was initiated. She was placed in the supine position with a left tilt and prepped and draped in usual sterile fashion. A Pfannenstiel incision was made with a scalpel and carried down to the level of the fascia which was sharply nicked. The fascial cut was extended bilaterally with [place] sissors. The inferior and superior edges of the cut fascial edges were elevated with Eva clamps and the underlying rectus muscles were sharply and bluntly dissected free. The recti were divided digitally and retracted manually. The peritoneum was entered bluntly and retracted manually. Alexic-O retractor was placed. The uterus was entered bluntly due to a very thin lower uterine segment. Clear fluid was seen. The hysterotomy was extended manually. The was noted to be vertex and was easily delivered by fundal pressure. Mouth and nares were bulb suctioned. Cord clamped and cut and grossly normal male/female infant was handed to waiting nurse. Cord blood was obtained. Placenta was spontaneously extracted, found to be intact with 3 vessel cord and discarded. The uterus was externalized and the endometrium was curetted with a dry lap. The uterus was closed with a running locking 1-0 Monocryl suture followed by a 1-0 Chromic figure of eight on the left aspect of the hysterotomy. Following this hemostasis was noted. Following this, a bilateral salpingectomy was performed without complications and good hemostasis. The abdomen was then irrigated with saline and suctioned free of clots. The uterus was internalized and the hysterotomy was again noted to be hemostatic. The fascia was closed with a running non-locking 0-Vicryl suture. The subcutaneous tissue was irrigated and there were no bleeders. The subcutaneous tissue was closed with three simple interrupted sutures using a 3-0 plain gut suture. The skin was approximated with brigette and a pressure dressing was placed. All counts were correct. The patient tolerated the procedure well and was taken to the recovery room in stable condition. Estimated Blood Loss: 1423 ml Complications: None Specimens: Cord blood sent to lab for blood type Findings: Grossly normal female with Apgars of 9 and 9. Grossly normal placenta with 3 vessel cord discarded. Drains: Curry to gravity draining clear urine <Rafaela Barajas - Last Filed: 12/05/17 11:18> Attending Addendum - Attending Addendum Date/Time: 12/06/17 0939 I was present and assisted with the repeat LCT C/S on 12/03/2017. 5cm uterine window after entry into peritoneum. Risk reducing salpiungectomy performed by Dr. Hogan (see separate operative note for this procedure). Viable female delivered in vertex presentation. Apgars 9/9. MTQ=4985 mL. Residents: Wendy/Juana. <Courtney Swanson - Last Filed: 12/06/17 09:44>
--- NOTE | 2017-12-03 20:41 | OP ---
DATE OF ENCOUNTER: 12/03/2017 PREOPERATIVE DIAGNOSIS: Increased risk for gynecologic cancer requesting prophylactic bilateral salp ingectomy. POSTOPERATIVE DIAGNOSIS: Increased risk for gynecologic cancer requesting prophylactic bilateral ernesto pingectomy. PROCEDURE: Bilateral salpingectomy at time of . ANESTHESIA: Spinal. SURGEON: Joselito Hogan M.D. COUNTS: Correct. CONDITION: Stable during my portion of the procedure. ESTIMATED BLOOD LOSS: Minimal during my portion of the procedure. SPECIMENS REMOVED: Left and right tube. DESCRIPTION OF PROCEDURE: Ms. Shannon Landon was present for a scheduled repeat and bilate ral risk reducing salpingectomy. The primary surgeon for the is Dr. Courtney Swanson requeste d dc to perform the salpingectomy portion of the procedure as she did have privileges to do so. For complete details regarding the , please refer to her operative note. Once the baby was ana richy and the hysterotomy was closed and hemostatic, the uterus was elevated out of the abdomen, giving access to the fundus and the tube of the left and the right. With the use of [place] clamps, the tu be was elevated exposing the windows present in the mesosalpinx. Defects were created with energy in these windows allowing for 1-0 chromic utilized to be utilized to tie off the most proximal portion of the isthmus and the vascularity in the mesosalpinx from the tube proper. Once this was done with the use of Metzen[place]ums, the left and the right tube were excised. The pedicles were inspected and he mostatic. Energy was used to cauterize the serosal portion of these pedicles. Once this was complet ed on the left and the right side, the procedure was then returned back to the hands of Dr. Courtney quiñones, and assisting physicians.
[2017-12-03] MEDS ORDERED: Lanolin Ointment 7 GM TUBE TOP PRN (20:42)
[2017-12-03] MEDS ORDERED: NS / Oxytocin 40 units/1000ml 1,000 ML IV SCH (20:42)
[2017-12-03] MEDS ORDERED: Bisacodyl 10 MG SUPP PR PRN (20:42)
[2017-12-03] MEDS ORDERED: Acetaminophen 325 MG TAB PO PRN (20:42)
[2017-12-03] MEDS ORDERED: Misoprostol 200 MCG TAB PR PRN (20:42)
[2017-12-03] MEDS ORDERED: Adacel (T-DAP) 0.5 ML VIAL IM ONE (21:00)
[2017-12-03] MEDS: Docusate Calcium (SURFAK) 240 MG CAP PO SCH (21:43)
[2017-12-03] MEDS: Ferrous Sulfate 325 MG TAB PO SCH (21:43)
[2017-12-03] MEDS ORDERED: Promethazine HCl 25 MG SUPP PR PRN (21:49)
[2017-12-03] MEDS ORDERED: NO PO,IM,IV OR SC NARCOTICS FOR 12HR EXCEPT BY ANESTHESIA PO SCH (21:49)
[2017-12-03] MEDS ORDERED: Hydrocerin (Eucerin) Cream 120 gm Jar TOP PRN (21:49)
[2017-12-03] MEDS ORDERED: diphenhydrAMINE 50 MG/ML VIAL IVP PRN (21:49)
[2017-12-03] MEDS ORDERED: Naloxone HCl 0.4 mg/ml Vial IV PRN ×3 (21:49)
[2017-12-03] MEDS ORDERED: Ibuprofen 800 MG TAB PO SCH (22:00)
[2017-12-04] MEDS: Ketorolac Tromethamine 30 MG/ML VIAL IVP PRN ×2 (00:50→10:06)
--- NOTE | 2017-12-04 06:23 | PDOC.PP ---
Post Progress Note Post Day #: 1 PO intake tolerated: no Flatus: yes Ambulation: no Vital Signs (12 hours) Temp Pulse Resp BP Pulse Ox 12/04/17 04:20 97.9 F 86 18 103/48 L 95 12/04/17 00:50 97.8 F 76 16 109/53 L 96 12/03/17 22:30 98.1 F 88 18 116/57 L 99 12/03/17 21:30 97.7 F 95 16 99/57 L 98 12/03/17 20:30 97.6 F 86 18 110/57 L Weight Weight 68.039 kg - Physical Examination General: NAD Cardiovascular: no m/r/g, RRR Respiratory: clear to auscultation bilaterally, non-labored breathing Abdominal: + bowel sounds, lochia, no distention, appropriately TTP Extremities: negative homans (B) Deviation from normal: surgical bandage, clean, dry and in place Neurological: no gross focal deficits Psychiatric: A&Ox3, normal affect Result Diagrams: 12/04/17 06:04 Additional Labs: Post Labs Blood Type A POSITIVE 12/03/17 14:22 Hep Bs Antigen Non-Reactive S/CO (NonReactive) 12/03/17 14:22 - Assessment/Plan 27 yo now delivered TSGA F via repeat LTCS @ 16:54 on 12/03. C- section scheduled for oligo. Term , delivered - was indicated for oligohydramnios. Placental insufficiency on MFM 3T US. - PP day #1 - routine PP care - pain well controlled with prn toradol, motrin, tylenol - yet to decide on control - F/U @ 6wk PP with Dr. Nguyen, [facility] Anemia of - H/H before delivery . PP H/H: 9. - asymptomatic CIN3 s/p Leep <Apolonia Feldman - Last Filed: 12/04/17 08:34> Vital Signs (12 hours) Temp Pulse Resp BP Pulse Ox 12/04/17 08:00 98.2 F 89 20 107/53 L 96 12/04/17 04:20 97.9 F 86 18 103/48 L 95 12/04/17 00:50 97.8 F 76 16 109/53 L 96 Weight Weight 68.039 kg Result Diagrams: 12/04/17 06:04 Additional Labs: Post Labs Blood Type A POSITIVE 12/03/17 14:22 Hep Bs Antigen Non-Reactive S/CO (NonReactive) 12/03/17 14:22 <Courtney Swanson - Last Filed: 12/04/17 11:09> Attending Addendum - Attending Addendum Date/Time: 12/04/17 1103 I personally evaluated the patient and discussed the management with Dr. Feldman I agree with the History, Examination, Assessment and Plan documented above with any addition or exceptions noted below- Patient without complaints. Pain controlled. Afebrile VSS. A/P: 1) POD#1 S/P R C/S - continue routine postop care. Tolerating clears; advance diet as tolerated. H/H stable. <Courtney Swanson - Last Filed: 12/04/17 11:09>
[2017-12-04 06:32] LABS: Hemoglobin 9.9 g/dL (12.0-16.0); Mean Corpuscular HGB CONC 31.8 g/dL (32.0-36.0); Mean Corpuscular Hemoglobin 27.7 pg (27.0-31.0); Mean Corpuscular Volume 87.1 fL (78.0-98.0); Mean Platelet Volume 11.1 fL (7.4-10.4); Platelet Count 124 thou/uL (130-400); Red Blood Cell (RBC) Count 3.58 mill/uL (4.20-5.40); White Blood Cell (WBC) Count 6.9 thou/uL (4.8-10.8)
[2017-12-04] MEDS ORDERED: Sodium Chloride 0.9% 10 ML ONE (09:39)
[2017-12-04] MEDS: Simethicone Chewable 80 MG TAB PO PRN ×2 (10:04→20:44)
[2017-12-04] MEDS: Ferrous Sulfate 325 MG TAB PO SCH ×2 (10:04→20:45)
[2017-12-04] MEDS: Docusate Calcium (SURFAK) 240 MG CAP PO SCH ×2 (10:05→20:45)
[2017-12-04] MEDS: Prenatal Vitamin 1 TAB PO SCH (10:05)
[2017-12-04] MEDS: Ibuprofen 800 MG TAB PO SCH (17:46)
[2017-12-04] MEDS: HYDROcodone/Acetaminophen 5/325 mg Tablet PO PRN (20:45)
[2017-12-05] MEDS: Ibuprofen 800 MG TAB PO SCH ×5 (00:41→21:59)
[2017-12-05] MEDS: Simethicone Chewable 80 MG TAB PO PRN (02:26)
[2017-12-05] MEDS ORDERED: Ibuprofen 800 MG TAB PO SCH (06:00)
--- NOTE | 2017-12-05 06:58 | PDOC.PP ---
Post Progress Note Post Day #: 2 Subjective: No acute events overnight. Endorsed moderate pain this morning. Gave norco. Ambulating to bathroom, passing flatus, no bowel movements yet, tolerating normal diet. PO intake tolerated: yes Flatus: no Ambulation: yes Vital Signs (12 hours) Temp Pulse Resp BP Pulse Ox 12/05/17 04:36 97.7 F 80 18 101/53 L 12/05/17 00:40 97.8 F 88 18 93/55 L 12/04/17 20:07 98.5 F 92 18 113/55 L 98 Weight Weight 68.039 kg - Physical Examination General: NAD Cardiovascular: no m/r/g, RRR Respiratory: clear to auscultation bilaterally Abdominal: lochia, appropriately TTP Fundus firm & at: umbilicus Skin: CS incision dry & intact Neurological: no gross focal deficits Psychiatric: A&Ox3, normal affect Result Diagrams: 12/04/17 06:04 Additional Labs: Post Labs Blood Type A POSITIVE 12/03/17 14:22 Hep Bs Antigen Non-Reactive S/CO (NonReactive) 12/03/17 14:22 (1) Grand multiparity Code(s): Z64.1 - PROBLEMS RELATED TO MULTIPARITY Status: Acute (2) Oligohydramnios Code(s): O41.00X0 - OLIGOHYDRAMNIOS, UNSP TRIMESTER, NOT APPLICABLE OR UNSP Status: Acute (3) Placental insufficiency Code(s): O36.5190 - MATERN CARE FOR KNOWN OR SUSP PLACNTL INSUFF, UNSP TRI, UNSP Status: Acute (4) Term Code(s): Z34.80 - ENCOUNTER FOR SUPRVSN OF NORMAL , UNSP TRIMESTER Status: Acute (5) DIO III (cervical intraepithelial neoplasia III) Status: Chronic Comment: s/p leep with subsequent ascus pap. Will plan for colposcopy PP (6) Gestational thrombocytopenia without hemorrhage in third trimester Code(s): O99.113 - OTH DIS OF BLD/BLD-FORM ORG/IMMUN MECHNSM COMP PREG, 3RD TRI ; D69.6 - THROMBOCYTOPENIA, UNSPECIFIED Status: Chronic (7) History of low transverse section Code(s): Z98.891 - HISTORY OF UTERINE SCAR FROM PREVIOUS SURGERY Status: Chronic Comment: 2/2 breech presentation. > 50% chance successfus (8) Normocytic normochromic anemia Code(s): D64.9 - ANEMIA, UNSPECIFIED Status: Chronic (9) delivery delivered Code(s): O82 - ENCOUNTER FOR DELIVERY WITHOUT INDICATION Status: Acute Comment: 26 yo >3 s/p LTCS for arrest of labor during TOLAC. Pt is doing well post op. Will continue PRN norco and motrin for pain control. Platelets are stable. Currently she is soaking through less than 1 pad/hr. Continue normal care. Pt is likely ready for dc today with baby pending his 36hr bili - Assessment/Plan Plan: Continue norco, motrin, tylenol for pain control. Encouraged ambulation, po intake. Discused bowel regimen. Pt is passing flatus today. Will likely dc tomorrow. <Rafaela Barajas - Last Filed: 12/05/17 10:18> Vital Signs (12 hours) Temp Pulse Resp BP Pulse Ox 12/06/17 07:50 98.1 F 85 16 109/55 L 96 Weight Weight 68.039 kg Result Diagrams: 12/04/17 06:04 Additional Labs: Post Labs Blood Type A POSITIVE 12/03/17 14:22 Hep Bs Antigen Non-Reactive S/CO (NonReactive) 12/03/17 14:22 (1) Grand multiparity Code(s): Z64.1 - PROBLEMS RELATED TO MULTIPARITY Status: Acute (2) Oligohydramnios Code(s): O41.00X0 - OLIGOHYDRAMNIOS, UNSP TRIMESTER, NOT APPLICABLE OR UNSP Status: Acute (3) Placental insufficiency Code(s): O36.5190 - MATERN CARE FOR KNOWN OR SUSP PLACNTL INSUFF, UNSP TRI, UNSP Status: Acute (4) Term Code(s): Z34.80 - ENCOUNTER FOR SUPRVSN OF NORMAL , UNSP TRIMESTER Status: Acute (5) DIO III (cervical intraepithelial neoplasia III) Status: Chronic Comment: s/p leep with subsequent ascus pap. Will plan for colposcopy PP (6) Gestational thrombocytopenia without hemorrhage in third trimester Code(s): O99.113 - OTH DIS OF BLD/BLD-FORM ORG/IMMUN MECHNSM COMP PREG, 3RD TRI ; D69.6 - THROMBOCYTOPENIA, UNSPECIFIED Status: Chronic (7) History of low transverse section Code(s): Z98.891 - HISTORY OF UTERINE SCAR FROM PREVIOUS SURGERY Status: Chronic (8) Normocytic normochromic anemia Code(s): D64.9 - ANEMIA, UNSPECIFIED Status: Chronic <Courtney Swanson - Last Filed: 12/06/17 09:37> Attending Addendum - Attending Addendum Date/Time: 12/06/17935 I personally evaluated the patient and discussed the management with Dr. Nguyen on 12/05/17 I agree with the History, Examination, Assessment and Plan documented above with any addition or exceptions noted below- Patient without complaints. Pain controlled with oral meds. Afebrile VSS. A/P: 1) POD#2 s/p repeat LCT C/S - continue routine care. Encourage ambulation. Tolerating diet. Anticipate d/c home in AM <Courtney Swanson - Last Filed: 12/06/17 09:37>
[2017-12-05] MEDS: HYDROcodone/Acetaminophen 5/325 mg Tablet PO PRN ×3 (07:17→22:06)
[2017-12-05] MEDS: Docusate Calcium (SURFAK) 240 MG CAP PO SCH ×2 (08:55→21:59)
[2017-12-05] MEDS: Ferrous Sulfate 325 MG TAB PO SCH ×2 (08:55→21:59)
[2017-12-05] MEDS: Prenatal Vitamin 1 TAB PO SCH (08:56)
--- NOTE | 2017-12-06 05:56 | PDOC.PP ---
Post Progress Note Post Day #: 3 PO intake tolerated: yes Flatus: yes Ambulation: yes Vital Signs (12 hours) Temp Pulse Resp BP 12/05/17 20:00 98.3 F 85 18 125/57 L Weight Weight 68.039 kg - Physical Examination General: NAD Cardiovascular: no m/r/g, RRR Respiratory: clear to auscultation bilaterally, non-labored breathing Abdominal: + bowel sounds, lochia, no distention, appropriately TTP Skin: CS incision dry & intact, no rash Neurological: no gross focal deficits Psychiatric: A&Ox3, normal affect Result Diagrams: 12/04/17 06:04 Additional Labs: Post Labs Blood Type A POSITIVE 12/03/17 14:22 Hep Bs Antigen Non-Reactive S/CO (NonReactive) 12/03/17 14:22 (1) Grand multiparity Code(s): Z64.1 - PROBLEMS RELATED TO MULTIPARITY Status: Acute (2) Oligohydramnios Code(s): O41.00X0 - OLIGOHYDRAMNIOS, UNSP TRIMESTER, NOT APPLICABLE OR UNSP Status: Acute (3) Placental insufficiency Code(s): O36.5190 - MATERN CARE FOR KNOWN OR SUSP PLACNTL INSUFF, UNSP TRI, UNSP Status: Acute (4) Term Code(s): Z34.80 - ENCOUNTER FOR SUPRVSN OF NORMAL , UNSP TRIMESTER Status: Acute (5) DIO III (cervical intraepithelial neoplasia III) Status: Chronic Comment: s/p leep with subsequent ascus pap. Will plan for colposcopy PP (6) Gestational thrombocytopenia without hemorrhage in third trimester Code(s): O99.113 - OTH DIS OF BLD/BLD-FORM ORG/IMMUN MECHNSM COMP PREG, 3RD TRI ; D69.6 - THROMBOCYTOPENIA, UNSPECIFIED Status: Chronic (7) History of low transverse section Code(s): Z98.891 - HISTORY OF UTERINE SCAR FROM PREVIOUS SURGERY Status: Chronic (8) Normocytic normochromic anemia Code(s): D64.9 - ANEMIA, UNSPECIFIED Status: Chronic (9) delivery delivered Code(s): O82 - ENCOUNTER FOR DELIVERY WITHOUT INDICATION Status: Acute - Assessment/Plan Plan: Continue norco, motrin, tylenol for pain control. Encouraged ambulation, po intake. Discused bowel regimen. Pt is passing flatus today. Will likely dc today. Okay to take out brigette and replace with steri strips. Dc on norco and motrin prn. Pt needs follow-up within 2 weeks at [facility]. <KarlRafaela - Last Filed: 12/06/17 09:48> Weight Weight 68.039 kg Result Diagrams: 12/04/17 06:04 Additional Labs: Post Labs Blood Type A POSITIVE 12/03/17 14:22 Hep Bs Antigen Non-Reactive S/CO (NonReactive) 12/03/17 14:22 (1) Grand multiparity Code(s): Z64.1 - PROBLEMS RELATED TO MULTIPARITY Status: Acute (2) Oligohydramnios Code(s): O41.00X0 - OLIGOHYDRAMNIOS, UNSP TRIMESTER, NOT APPLICABLE OR UNSP Status: Acute (3) Placental insufficiency Code(s): O36.5190 - MATERN CARE FOR KNOWN OR SUSP PLACNTL INSUFF, UNSP TRI, UNSP Status: Acute (4) Term Code(s): Z34.80 - ENCOUNTER FOR SUPRVSN OF NORMAL , UNSP TRIMESTER Status: Acute (5) DIO III (cervical intraepithelial neoplasia III) Status: Chronic Comment: s/p leep with subsequent ascus pap. Will plan for colposcopy PP (6) Gestational thrombocytopenia without hemorrhage in third trimester Code(s): O99.113 - OTH DIS OF BLD/BLD-FORM ORG/IMMUN MECHNSM COMP PREG, 3RD TRI ; D69.6 - THROMBOCYTOPENIA, UNSPECIFIED Status: Chronic (7) History of low transverse section Code(s): Z98.891 - HISTORY OF UTERINE SCAR FROM PREVIOUS SURGERY Status: Chronic (8) Normocytic normochromic anemia Code(s): D64.9 - ANEMIA, UNSPECIFIED Status: Chronic <Courtney Swanson - Last Filed: 12/06/17 23:41> Attending Addendum - Attending Addendum Date/Time: 12/06/17 [id number] I personally evaluated the patient and discussed the management with Dr. Nguyen I agree with the History, Examination, Assessment and Plan documented above with any addition or exceptions noted below.- Patient wigtout complaints. Ambulating/voiding. Tolerating diet. Afebrile VSS. A/P: 1) POD#3 s/p repeat LCT C/S- Plan to d/c home today. Follow-up @[facility] in 2 weeks. <Courtney Swanson - Last Filed: 12/06/17 23:41>
[2017-12-06] MEDS: Ibuprofen 800 MG TAB PO SCH (06:09)
[2017-12-06 09:05] VITALS: BP 109/55; TEMP 98.1
[2017-12-06] MEDS: Prenatal Vitamin 1 TAB PO SCH (09:53)
[2017-12-06] MEDS: Ferrous Sulfate 325 MG TAB PO SCH (09:53)
[2017-12-06] MEDS: Docusate Calcium (SURFAK) 240 MG CAP PO SCH (09:53)
[2017-12-06] MEDS: HYDROcodone/Acetaminophen 5/325 mg Tablet PO PRN (09:55)
== END 2017-12-06 12:40 | disposition home or self-care (01) | DRG 785 ==
LOC: L&D 13:42 → 3SW 20:40
PROVIDERS: ADMIT Family Medicine; ATTEND Family Medicine
PROC: 10D00Z1 Extraction of Products of Conception, Low, Open Approach (ICD-10-PCS; principal; 2017-12-03)
PROC: 0UT70ZZ Resection of Bilateral Fallopian Tubes, Open Approach (ICD-10-PCS; 2017-12-03)
PROC: 10907ZC Drainage of Amniotic Fluid, Therapeutic from Products of Conception, Via Natural or Artificial Opening (ICD-10-PCS; 2017-12-03)
DX: O41.03X0 Oligohydramnios, third trimester, not applicable or unspecified (principal); Z3A.37 37 weeks gestation of pregnancy; Z37.0 Single live birth; O34.211 Maternal care for low transverse scar from previous cesarean delivery; Z80.41 Family history of malignant neoplasm of ovary
CPT/HCPCS: 36415; 51702; 76815; 76819; 85027; 86780; 86850; 86900; 86901; 87340; 88302; 88307; 99282; J1885; J2001; J2274; J2405; J2590; J2704; J3010; J3490

== ENCOUNTER 2018-02-01 12:56 | Emergency (ER) | payer BC, OTHER ==
[2018-02-01] MEDS ORDERED: Proparacaine 0.5% Opth 15 ML BOT ONE (13:37)
[2018-02-01] MEDS ORDERED: HYDROcodone/Acetaminophen 5/325 mg Tablet ONE (13:38)
== END 2018-02-01 14:45 | disposition home or self-care (01) ==
LOC: ERS 12:56
DX: H57.12 Ocular pain, left eye (principal)
CPT/HCPCS: 99283